=== PATIENT | female | born 2005 | race African-American/Black ===

== ENCOUNTER 2024-04-22 00:26 | Day surgery (SDC) | payer OTHER, SELFPAY ==
[2024-04-18 14:48] VITALS: BMI 45.7
--- NOTE | 2024-04-18 14:58 | SUR.PREOP ---
Report to the Outpatient Waiting Room, entrance under the green pavilion located off [facility], at time 6:15a.m. on date 04/22/2024. Planned Procedure Time: 8:15a.m.. Time changes happen often and if your time is changed the preop area will call you the afternoon before. - You and your visitor will be asked to self-screen and do not enter if you have any COVID symptoms. - A mask is optional within the hospital at this time. Patients may have clear liquids (water, carbonated beverages, clear teas, apple juice) until 3 hours prior to surgery with a maximum of 20 ounces. - No food from midnight until time of surgery - Infants may have breast milk until 4 hours before surgery, formula 6 hours prior to surgery. - Children will be allowed to drink immediately following surgery. If applicable, please bring a bottle or sippy cup to assist with drinking. Juice, water, soda, and popsicles are readily available. For infants on formula, please bring formula the day of surgery. Pacifiers are allowed. Take the following medications with a SIP of water the morning of surgery: control DO NOT STOP ANY OF YOUR OTHER PRESCRIPTION MEDICATIONS PRIOR TO SURGERY ?EXCEPT THE FOLLOWING Medications to discontinue per physician N/A Date to take last dose N/A Please no make-up, nail mohawk, hairspray, perfume, deodorant, or body powder the day of surgery. No jewelry (including any body piercings) or valuables the day of surgery, leave them at home. Please take a shower or bath the night before, or the morning of, surgery with an antibacterial soap. Wear comfortable, loose fitting clothing. Children are encouraged to wear pajamas. - Jewelry must be removed prior to entering the operating room. Rings and piercings that are not removed may be cut off. - The hospital will not accept responsibility for valuables. - Please leave all valuables, including medications, at home the day of surgery. If you are going home after surgery, a licensed courtesy car driver must drive you home. - NO public transportation without another adult if you receive anesthesia. - We recommend that an adult stay with you for 24 hours following discharge. - We also recommend that you do not drive, make important decision, drink alcoholic beverages, or take any drugs that were not prescribed by your health care provider for at least 24 hours after your discharge time. For Pediatric surgeries, we recommend two adults accompany the child home. Follow any additional instructions given to you from your surgeon. If you or anyone in your household have experienced Covid symptoms in the past week, please notify your surgeon or the nurse liaison at the phone number below for possible testing. Telephone instructions given to Danita Tavarez and asked if any additional questions and then verbalized understanding. Patient advised to call surgeon office or pre surgery nurse liaison [phone] if any additional questions.
--- NOTE | 2024-04-21 16:28 | P.HP_ITS ---
H&P: HPI History of Present Illness Date/Time: 04/21/24 16:28 Chief Complaint: chronic otitis media snoring adenoid hypertrophy nasal obstruction turbinate hypertrophy Narrative: planned procedure Review of Systems Review of Systems: All systems reviewed & are unremarkable except as noted in HPI and below [facility] Surgical History Surgical History S/P tonsillectomy Social History Social History Smoking status: Never smoker Substance use: current Substance use type: marijuana Other substance usage details: Monthly Living arrangements: with family Meds Home Medications and Allergies Home Medications Medication Instructions Recorded Confirmed Type fluticasone propionate 50 1 - 2 spray intranasal BID #16 mL 02/05/23 04/18/24 Rx mcg/actuation nasal spray,suspension (Flonase Allergy Relief) azelastine 137 mcg (0.1 %) nasal 1 - 2 spray intranasal Q12H #30 mL 03/04/24 04/18/24 Rx spray omeprazole 10 mg capsule,delayed 10 mg PO DAILY 03/04/24 04/18/24 History release norgestimate-ethinyl estradiol 1 tablet DAILY 04/18/24 04/18/24 History 0.18 mg/0.215mg/0.25mg-35 mcg(28)tablet Allergies Allergy/AdvReac Type Severity Reaction Status Date / Time No Known Allergies Allergy Unverified 04/18/24 14:45 Exam Narrative: large turbinates large adenoids fluid in the ears Assessment and Plan Assessment and plan (1) Nasal turbinate hypertrophy: Code(s): J34.3 - Hypertrophy of nasal turbinates Status: Acute Assessment and Plan: OR for bilateral myringotomy with tube insertion adenoidectomy both transnasal and transoral and inferior turbinate reduction bilaterally with outfracture risks discussed bleeding infection damage to nerve structures need for the procedure ear protrude turbinates change in vision total blindness CSF leak brain brain damage the resolve symptoms need for further procedures postoperative bleeding infection he time off work time off school need for routine follow-up chronic otorrhea cholesteatoma formation persistent perforation facial nerve paralysis total deafness damage any Structure of the clavicles by self-any structure induction and maintenance of anesthesia including vocal cord paralysis (2) Chronic otitis media of both ears: Code(s): H66.93 - Otitis media, unspecified, bilateral Status: Acute (3) Hypertrophy of adenoids: Code(s): J35.2 - Hypertrophy of adenoids Status: Acute (4) Nasal obstruction: Code(s): J34.89 - Other specified disorders of nose and nasal sinuses Status: Acute
[2024-04-22] VITALS (10 sets, daily range): BP systolic 122–149; BP diastolic 67–105; PULSE 71–94; RESP 12–20; TEMP 36.3–36.6; O2SAT 93–100; BMI 48.6
[2024-04-22] MEDS: LACTATED RINGERS 1,000 ML 30 ML IV CONT ×2 (07:04→09:34)
[2024-04-22] MEDS: ACETAMINOPHEN 500 MG TABLET 1000 MG PO (07:04)
--- NOTE | 2024-04-22 07:18 | WPDHPUPDATE1 ---
History and Physical Update Update Date/Time: 04/22/24 07:18 History and Physical has been reviewed, including an updated exam of the patient. There are NO changes in the patient's condition. Risks, benefits, and alternatives have been discussed and questions answered. Patient agrees to proceed with procedure.
--- NOTE | 2024-04-22 07:40 | P.PNAN_ITS ---
Anes - Initial Pre Proc Eval Procedure: Operation Date: 04/22/24 08:15 Proposed Procedures p Adenoidectomy Trans Nasal and Trans Oral - Riley Avery MD s Bilateral Inferior Turbinate Reduction with Outfracture - Riley Avery MD s Bilateral Myringotomy,Insertion Of Tubes - Riley Avery MD Date/Time: 04/22/24 07:40 Surgeon: Riley Avery MD Pre Op Diagnosis: Adenoid Hypertrophy, Chr Jorge Alberto Otitis Media Patient Data Age: 18 Gender: F Height: 1.57 m Weight: 120.7 kg Last Vital Signs Temp 36.6 C 04/22/24 07:10 Pulse 71 04/22/24 07:10 Resp 20 04/22/24 07:10 BP 122/67 04/22/24 07:10 Pulse Ox 99 04/22/24 07:10 O2 Del Method Room Air 04/22/24 07:10 Allergies Allergy/AdvReac Type Severity Reaction Status Date / Time No Known Allergies Allergy Unverified 04/18/24 14:45 Home Medications Medication Instructions Recorded Confirmed Type fluticasone propionate 50 1 - 2 spray intranasal BID #16 mL 02/05/23 04/18/24 Rx mcg/actuation nasal spray,suspension (Flonase Allergy Relief) azelastine 137 mcg (0.1 %) nasal 1 - 2 spray intranasal Q12H #30 mL 03/04/24 04/18/24 Rx spray omeprazole 10 mg capsule,delayed 10 mg PO DAILY 03/04/24 04/18/24 History release norgestimate-ethinyl estradiol 1 tablet DAILY 04/18/24 04/18/24 History 0.18 mg/0.215mg/0.25mg-35 mcg(28)tablet Patient hx anesthesia problems: none Family hx anesthesia problems: none Results Review: All pre-operative results and documents have been reviewed as part of the pre- operative evaluation. [facility] Past Medical History Medical History (Updated 04/22/24 @ 07:41 by Bienvenido Wolf MD) Morbid obesity CARISA (obstructive sleep apnea) Surgical History Surgical History S/P tonsillectomy Social History Social History Smoking status: Never smoker Substance use: current Substance use type: marijuana Other substance usage details: Monthly Living arrangements: with family Rupert Owens Final PreProcedure Day of Procedure 04/22/24 07:40 Patient weight: morbidly obese Heart: regular rate and rhythm Lungs: clear to auscultation Airway: Mallampati scale class II Neurological: alert and oriented Last oral intake: >/= 8 hours ASA classification: III Emergent: no Anesthetic plan: proceed Anesthesia type and monitoring: general ETT and standard monitoring Results Review: All pre-operative results and documents have been reviewed as part of the pre- operative evaluation. Informed Consent: The patient's anesthetic plan and its attendant risks and benefits were discussed with the patient/family/POA. Questions were solicited and answers provided to the satisfaction of the patient/family/POA.
[2024-04-22] MEDS: ceFAZolin 3 GM/D5W 100 ML 100 ML IVPB (08:05)
[2024-04-22] MEDS: LIDO 1%/EPINEPHRINE 1:100,000 50 ML VIAL 10 ML INFILTRATE (08:25)
[2024-04-22] MEDS: OXYMETAZOLINE HCL 0.05% NAS 15 ML BTL (*BKC) 1 SPRAY NASAL (08:26)
[2024-04-22] MEDS: CIPROFLOXACIN HCL 0.3% OP SOLN 2.5 ML BTL 4 DROP EACH EAR (08:28)
[2024-04-22] MEDS: fentaNYL CITRATE INJ (*CRX) 100 MCG/2 ML VIAL 25 MCG IV PUSH ×2 (09:48→09:50)
--- NOTE | 2024-04-22 09:56 | P.OP_ITS ---
Procedure Note - Detailed Date of Procedure 04/22/24 Pre-op Diagnosis Adenoid Hypertrophy, Chr Jorge Alberto Otitis Media , turbinate hypertrophy, nasal obstruction Post-op Diagnosis Same Procedure Performed bilateral inferior turbinate reduction with outfracture, transnasal adenoidectomy, transoral adenoidectomy, bilateral myringotomy tube insertion Surgeon Riley Avery MD Anesthesia General Indications see above Findings 4+ adenoids completely filling the posterior choana and nasopharynx removed transnasally transorally minimal bleeding no damage to gregoria fluid in the bilateral middle ears large turbinates well reduced minimal bleeding Description of Procedure patient identified consent verified preop. Patient to the room. Time-out performed. General anesthesia induced endotracheal tube secured. Patient p repped draped position procedure confirmed 2nd time-out performed. Edgar microscope brought in field right-sided viewed myringotomy made fluid suctioned out was clear tube placed Ciprodex placed same procedure performed on left-sided same findings. McIvor mouth gag then inserted revealing very large adenoids 8 extended into the oropharynx. They were removed with Bovie suction electrocautery setting of high no damage to gregoria hence setting of 30 no damage to gregoria no damage to septum no damage to palate. We then went transnasally. Afrin placed for 5 minutes on pledgets then removed 0 degree scope utilized gigantic adenoids in the nasopharynx and choana they were removed with Bovie suction electrocautery setting of 30 on the high suction. No damage to gregoria or septum or palate. Much more patent nasopharynx. Turbinates were then injected with 2 cc each of 1% local 1 100,000 parts epinephrine 15 blade utilized to make a stab incision anteriorly and then the [place] 2.5 mm turbinate blade was utilized to debride submucosal plane no tears outfractured with Glades elevator. Blood suctioned out total 15 cc blood loss. Not even 10 cc. I performed all dictated portions procedure no complications care the patient given back to Anesthesiology patient taken to PACU. Estimated Blood Loss 10 Drains No Packing No Pathology None sent Complications No immediate complications Condition Stable Disposition PACU [facility] Billing Surgery - Charge Forward: Surgery Billing
[2024-04-22] MEDS: MIDAZOLAM HCL (*CRX) 2 MG/2 ML VIAL IV PUSH (09:58)
[2024-04-22] MEDS: oxyCODONE HCL (*CRX) 5 MG TAB IR PO (11:00)
== END 2024-04-22 11:38 | disposition home or self-care (01) ==
PROVIDERS: PCP Family Medicine; Visit Provider Otolaryngology
PROC: (CPT 42831; principal; 2024-04-22 08:15)
PROC: (CPT 42831; 2024-04-22 08:15)
PROC: (CPT 42831; 2024-04-22 08:15)
DX: J35.2 Hypertrophy of adenoids (principal); H66.93 Otitis media, unspecified, bilateral; J34.3 Hypertrophy of nasal turbinates; J34.89 Other specified disorders of nose and nasal sinuses
CPT/HCPCS: 42831; 69436; 30140; A9270; J0330; J0690; J1100; J1170; J2250; J2405; J2704; J3010; J7050; J7120